=== PATIENT | male | born 1980 | race Caucasian/White ===

== ENCOUNTER 2021-06-11 18:29 | Emergency (ER) | payer OTHER ==
[2021-06-11 19:55] LABS: CORONAVIRUS 2019 SARS-COV-2 NEGATIVE (NEGATIVE); INFLUENZA A NAA NEGATIVE (NEGATIVE)
== END 2021-06-11 20:12 | disposition home or self-care (01) ==
LOC: FER 18:29
PROVIDERS: Nurse Practitioner Family
DX: B34.9 Viral infection, unspecified (principal); F17.210 Nicotine dependence, cigarettes, uncomplicated; Z20.822 Contact with and (suspected) exposure to COVID-19; Z88.5 Allergy status to narcotic agent
CPT/HCPCS: 99284; U0002